=== PATIENT | male | born 1970 | race American Indian/Alaskan Native ===

== ENCOUNTER 2017-08-08 18:03 | Observation (INO) | payer SELFPAY ==
[2017-08-08 19:10] LABS: Basophils % (Auto) 0.4 % (0.0-1.8); Eosinophils # (Auto) 0.1 K/mm3 (0.0-0.4); Eosinophils % (Auto) 1.3 % (0.0-4.3); Hematocrit 45.2 % (35.5-45.6); Hemoglobin 15.1 gm/dl (11.8-15.2); Lymphocytes # (Auto) 3.4 K/mm3 (1.2-5.4); Lymphocytes % (Auto) 52.5 % (13.4-35.0); Mean Corpuscular HGB Conc 33 % (32-34); Mean Corpuscular Hemoglobin 31 pg (28-32); Mean Corpuscular Volume 93 fl (84-94); Monocytes # (Auto) 0.4 K/mm3 (0.0-0.8); Monocytes % (Auto) 6.9 % (0.0-7.3); Platelet Count 162 K/mm3 (140-440); Red Blood Count 4.85 M/mm3 (3.65-5.03); Red Cell Distribution Width 14.4 % (13.2-15.2)
[2017-08-08 19:17] LABS: INR 0.91 (0.87-1.13); Partial Thromboplastin Time 28.6 Sec. (24.2-36.6); Thrombin Time 15.4 Sec. (15.1-19.6)
[2017-08-08 19:33] LABS: BUN/Creatinine Ratio 14; Blood Urea Nitrogen 14 mg/dL (9-20); Calcium 9.4 mg/dL (8.4-10.2); Hemolysis Index 3
[2017-08-08] MEDS ORDERED: APRESOLINE IV ONE (20:32)
[2017-08-08] MEDS ORDERED: NACL 0.9% 500 ML 500 ML IV ONE (20:32)
--- NOTE | 2017-08-08 20:32 | Emergency Department Report ---
ED General Adult HPI - General Chief complaint: Dizziness Stated complaint: HEADACHE,DIZZINESS Time Seen by Provider: 08/08/17 20:05 Source: patient, RN notes reviewed Mode of arrival: Ambulatory Limitations: No Limitations - History of Present Illness Initial comments: This is a 47-year-old male who was previously unknown to this provider, he does not have a local primary care doctor. Thinks he has a past medical history of hypertension but has not been on medication for months. Patient presents to the ER with a complaint of dizziness. The dizziness has been present for a few days. He describes it as a sensation of unsteady gait. To me he denies headache, neck pain, chest pain, abdominal pain, shortness of breath. He denies blurry vision. He denies loss of visual acuity. His symptoms have been constant, they do not radiate anywhere, they're painless, they do not have exacerbating or relieving factors. The patient denies pulmonary embolus and DVT risk factors. The patient is actually adamant that he did not have chest pain or neck pain. He is also adamant that he did not have headache. -: Gradual Severity scale (0 -10): 0 Consistency: constant Improves with: none Worsens with: none Associated Symptoms: denies: confusion, chest pain, cough, diaphoresis, fever/ chills, loss of appetite, malaise, nausea/vomiting, rash, shortness of breath, syncope, weakness - Related Data Allergies Allergy/AdvReac Type Severity Reaction Status Date / Time No Known Allergies Allergy Verified 08/08/17 23:20 ED Review of Systems ROS: Stated complaint: HEADACHE,DIZZINESS Other details as noted in HPI ED Past Medical Hx - Past Medical History Previous Medical History?: Yes Hx Hypertension: Yes - Surgical History Past Surgical History?: No - Social History Smoking Status: Former Smoker Substance Use Type: Alcohol, Non Opiate Pain, Prescribed ED Physical Exam - General Limitations: No Limitations General appearance: alert, in no apparent distress - Head Head exam: Present: atraumatic, normocephalic - Eye Eye exam: Present: normal appearance, PERRL, EOMI, other (visual acuity intact to finger counting, color perception, reading at a close distance). Absent: nystagmus - ENT ENT exam: Present: normal exam, normal orophraynx, mucous membranes moist - Neck Neck exam: Present: normal inspection, full ROM. Absent: tenderness, meningismus - Respiratory Respiratory exam: Present: normal lung sounds bilaterally. Absent: respiratory distress - Cardiovascular Cardiovascular Exam: Present: regular rate, normal rhythm, normal heart sounds. Absent: systolic murmur, diastolic murmur, rubs, gallop - GI/Abdominal GI/Abdominal exam: Present: soft, normal bowel sounds. Absent: distended, tenderness, guarding, rebound, rigid, pulsatile mass - Rectal Rectal exam: Present: deferred - Extremities Exam Extremities exam: Present: normal inspection, full ROM, normal capillary refill. Absent: tenderness, pedal edema, joint swelling, calf tenderness - Back Exam Back exam: Present: normal inspection, full ROM. Absent: tenderness, CVA tenderness (R), paraspinal tenderness, vertebral tenderness - Neurological Exam Neurological exam: Present: alert, oriented X3, CN II-XII intact, normal gait, other (Extraocular movements intact. Tongue midline. No facial droop. Facial sensation intact to light touch in the V1, V2, V3 distribution bilaterally. 5 and 5 strength in 4 extremities.. Sensation is intact to light touch in 4 extremities.). Absent: motor sensory deficit - Psychiatric Psychiatric exam: Present: normal affect, normal mood - Skin Skin exam: Present: warm, dry, intact, normal color. Absent: rash ED Course Vital Signs 08/08/17 08/08/17 08/08/17 18:19 20:02 20:05 Temperature 98.2 F Pulse Rate 98 H 94 H Respiratory 20 16 18 Rate Blood Pressure 186/125 Blood Pressure [Left] O2 Sat by Pulse 99 99 Oximetry 08/08/17 08/08/17 08/08/17 20:15 20:18 20:30 Temperature Pulse Rate 87 Respiratory 18 Rate Blood Pressure 179/105 Blood Pressure 195/115 [Left] O2 Sat by Pulse 99 99 100 Oximetry 08/08/17 08/08/17 08/08/17 20:45 21:00 21:12 Temperature Pulse Rate 80 Respiratory Rate Blood Pressure 182/104 179/105 188/110 Blood Pressure [Left] O2 Sat by Pulse 99 98 Oximetry 08/08/17 08/08/17 08/08/17 21:15 21:30 21:45 Temperature Pulse Rate 77 92 H 87 Respiratory 14 19 16 Rate Blood Pressure 173/108 159/90 150/96 Blood Pressure [Left] O2 Sat by Pulse 99 100 99 Oximetry 08/08/17 08/08/17 08/08/17 22:00 22:15 22:30 Temperature Pulse Rate 78 77 85 Respiratory 12 15 14 Rate Blood Pressure 152/89 169/104 167/107 Blood Pressure [Left] O2 Sat by Pulse 97 98 Oximetry 08/08/17 08/08/17 08/08/17 22:45 23:00 23:15 Temperature Pulse Rate 77 77 87 Respiratory 14 15 17 Rate Blood Pressure 150/92 161/91 163/87 Blood Pressure [Left] O2 Sat by Pulse 97 96 99 Oximetry - Reevaluation(s) Reevaluation #1: 08/08/17 22:07 Differential diagnosis, including not limited to: Intracranial hemorrhage, posterior reversible encephalopathy syndrome, hypertensive emergency, nonspecific vestibulopathy Assessment and plan: 47-year-old male with very elevated blood pressure, was initially 206/126 when I am evaluating him with a complaint of dizziness and subjective unsteady gait. Objectively speaking has a GCS of 15, NIH score of 0 , walks with a steady gait, has no cerebellar signs or posterior circulation signs. Denies headache and neck pain, by history not consistent with subarachnoid hemorrhage, patient is quite sure that he did not have a headache. Check laboratory studies, noncontrast CT scan of the brain. Reassess. Reevaluation #2: 08/08/17 23:42 Case is presented to the Hospital physician, Dr. Chaidez, who accepted the patient to the medical service. ED Medical Decision Making - Lab Data Result diagrams: 08/08/17 18:52 08/08/17 18:52 Vital Signs 08/08/17 08/08/17 08/08/17 18:19 20:02 20:05 Temperature 98.2 F Pulse Rate 98 H 94 H Respiratory 20 16 18 Rate Blood Pressure 186/125 Blood Pressure [Left] O2 Sat by Pulse 99 99 Oximetry 08/08/17 08/08/17 08/08/17 20:15 20:18 20:30 Temperature Pulse Rate 87 Respiratory 18 Rate Blood Pressure 179/105 Blood Pressure 195/115 [Left] O2 Sat by Pulse 99 99 100 Oximetry 08/08/17 08/08/17 08/08/17 20:45 21:00 21:12 Temperature Pulse Rate 80 Respiratory Rate Blood Pressure 182/104 179/105 188/110 Blood Pressure [Left] O2 Sat by Pulse 99 98 Oximetry 08/08/17 08/08/17 21:15 21:30 Temperature Pulse Rate 77 92 H Respiratory 14 19 Rate Blood Pressure 173/108 159/90 Blood Pressure [Left] O2 Sat by Pulse 99 100 Oximetry Lab Results 08/08/17 08/08/17 08/08/17 Range/Units 18:52 18:52 18:52 WBC 6.5 (4.5-11.0) K/mm3 RBC 4.85 (3.65-5.03) M/mm3 Hgb 15.1 (11.8-15.2) gm/dl Hct 45.2 (35.5-45.6) % MCV 93 (84-94) fl MCH 31 (28-32) pg MCHC 33 (32-34) % RDW 14.4 (13.2-15.2) % Plt Count 162 (140-440) K/mm3 Lymph % (Auto) 52.5 H (13.4-35.0) % [place] % (Auto) 6.9 (0.0-7.3) % Eos % (Auto) 1.3 (0.0-4.3) % Baso % (Auto) 0.4 (0.0-1.8) % Lymph # 3.4 (1.2-5.4) K/mm3 [place] # 0.4 (0.0-0.8) K/mm3 Eos # 0.1 (0.0-0.4) K/mm3 Baso # 0.0 (0.0-0.1) K/mm3 Seg Neutrophils % 38.9 L (40.0-70.0) % Seg Neutrophils # 2.5 (1.8-7.7) K/mm3 PT 12.7 (12.2-14.9) Sec. INR 0.91 (0.87-1.13) APTT 28.6 (24.2-36.6) Sec. Thrombin Time 15.4 (15.1-19.6) Sec. Sodium 144 (137-145) mmol/L Potassium 3.9 (3.6-5.0) mmol/L Chloride 101.8 (98-107) mmol/L Carbon Dioxide 26 (22-30) mmol/L Anion Gap 20 mmol/L BUN 14 (9-20) mg/dL Creatinine 1.0 (0.8-1.5) mg/dL Estimated GFR > 60 ml/min BUN/Creatinine Ratio 14 % Glucose 99 (75-100) mg/dL Calcium 9.4 (8.4-10.2) mg/dL Troponin T < 0.010 (0.00-0.029) ng/mL - EKG Data -: EKG Interpreted by Me - EKG Data 08/08/17 22:10 Normal sinus, 93 bpm, normal axis, normal intervals, motion artifact, not morphologically consistent with ST elevation myocardial infarction. - Radiology Data Radiology results: report reviewed, image reviewed Noncontrast CT scan of the brain is negative for acute disease Critical care attestation.: If time is entered above; I have spent that time in minutes in the direct care of this critically ill patient, excluding procedure time. ED Disposition Clinical Impression: Hypertensive urgency Disposition: 09 OP ADMIT IP TO THIS HOSP Is pt being admited?: Yes Does the pt Need Aspirin: Yes Condition: Good
--- NOTE | 2017-08-08 21:08 | Cat Scan Report ---
FINAL REPORT EXAM: CT HEAD/BRAIN WO CON HISTORY: neuro deficits < 6hrs or sx present upon awakening COMPARISON: None available. TECHNIQUE: Axial images obtained skull base through vertex. FINDINGS: No acute intracranial hemorrhage, midline shift or pathologic extra axial fluid collection. Ventricles and cisterns are normal in size and configuration for the patient's age. Moore-white differentiation preserved. Calvarium grossly intact. Ocular globes are grossly unremarkable. Visualized para-nasal sinuses and mastoid air cells are clear. IMPRESSION: No grossly acute intracranial abnormality. If clinical concern for acute intracranial process remains, MRI would be suggested for further evaluation.
--- NOTE | 2017-08-08 22:55 | History and Physical Report ---
History of Present Illness Date of examination: 08/08/17 Chief complaint: Headache and dizziness History of present illness: This is a 47-year-old male who was previously unknown to this provider, he does not have a local primary care doctor. Thinks he has a past medical history of hypertension but has not been on medication for months. Patient presents to the ER with a complaint of dizziness. The dizziness has been present for a few days. He describes it as a sensation of unsteady gait. To me he denies headache, neck pain, chest pain, abdominal pain, shortness of breath. He denies blurry vision. He denies loss of visual acuity. His symptoms have been constant, they do not radiate anywhere, they're painless, they do not have exacerbating or relieving factors. The patient denies pulmonary embolus and DVT risk factors. The patient is actually adamant that he did not have chest pain or neck pain. He is also adamant that he did not have headache. - Past Medical History Previous Medical History?: Yes Hx Hypertension: Yes - Surgical History Past Surgical History?: No - Social History Smoking Status: Former Smoker Substance Use Type: Alcohol, Non Opiate Pain, Prescribed Medications and Allergies Allergies Allergy/AdvReac Type Severity Reaction Status Date / Time No Known Allergies Allergy Unverified 08/08/17 18:19 Review of Systems All systems: negative (all 14 systems reviewed and found to be negative except as mentioned in HPI) Exam - Physical Exam Narrative exam: Gen - patient is awake alert oriented to time place and person no evidence of acute distress HEENT - head is atraumatic normocephalic pupils equal round reactive to light, extraocular movements intact, oral mucosa moist oropharynx clear neck is supple no JVD no thyromegaly or lymphadenopathy no carotid bruits trachea is midline Heart - regular rate and rhythm no murmurs or gallops PMI nondisplaced Lungs - clear to auscultation bilaterally nonlabored breathing normal chest wall expansion no chest wall tenderness Abdomen - soft nondistended nontender normoactive bowel sounds no hepatosplenomegaly no abdominal masses or bruit appreciated Extremities - no cyanosis or edema. Neurological - grossly intact and nonfocal. Sensation is grossly intact. Cranial nerves II-12 grossly intact. No cerebellar signs. Skin - warm and dry no rashes or bruises Psychiatric - appropriate mood and affect Vascular system - no lymphadenopathy distal pulses 2+ bilaterally - Constitutional Vitals: Temp Pulse Resp BP Pulse Ox 98.2 F 92 H 19 159/90 100 08/08/17 18:19 08/08/17 21:30 08/08/17 21:30 08/08/17 21:30 08/08/17 21:30 Results - Labs CBC & Chem 7: 08/08/17 18:52 08/08/17 18:52 Labs: Laboratory Last Values WBC 6.5 K/mm3 (4.5-11.0) 08/08/17 18:52 RBC 4.85 M/mm3 (3.65-5.03) 08/08/17 18:52 Hgb 15.1 gm/dl (11.8-15.2) 08/08/17 18:52 Hct 45.2 % (35.5-45.6) 08/08/17 18:52 MCV 93 fl (84-94) 08/08/17 18:52 MCH 31 pg (28-32) 08/08/17 18:52 MCHC 33 % (32-34) 08/08/17 18:52 RDW 14.4 % (13.2-15.2) 08/08/17 18:52 Plt Count 162 K/mm3 (140-440) 08/08/17 18:52 Lymph % (Auto) 52.5 % (13.4-35.0) H 08/08/17 18:52 [place] % (Auto) 6.9 % (0.0-7.3) 08/08/17 18:52 Eos % (Auto) 1.3 % (0.0-4.3) 08/08/17 18:52 Baso % (Auto) 0.4 % (0.0-1.8) 08/08/17 18:52 Lymph # 3.4 K/mm3 (1.2-5.4) 08/08/17 18:52 [place] # 0.4 K/mm3 (0.0-0.8) 08/08/17 18:52 Eos # 0.1 K/mm3 (0.0-0.4) 08/08/17 18:52 Baso # 0.0 K/mm3 (0.0-0.1) 08/08/17 18:52 Seg Neutrophils % 38.9 % (40.0-70.0) L 08/08/17 18:52 Seg Neutrophils # 2.5 K/mm3 (1.8-7.7) 08/08/17 18:52 PT 12.7 Sec. (12.2-14.9) 08/08/17 18:52 INR 0.91 (0.87-1.13) 08/08/17 18:52 APTT 28.6 Sec. (24.2-36.6) 08/08/17 18:52 Thrombin Time 15.4 Sec. (15.1-19.6) 08/08/17 18:52 Sodium 144 mmol/L (137-145) 08/08/17 18:52 Potassium 3.9 mmol/L (3.6-5.0) 08/08/17 18:52 Chloride 101.8 mmol/L (98-107) 08/08/17 18:52 Carbon Dioxide 26 mmol/L (22-30) 08/08/17 18:52 Anion Gap 20 mmol/L 08/08/17 18:52 BUN 14 mg/dL (9-20) 08/08/17 18:52 Creatinine 1.0 mg/dL (0.8-1.5) 08/08/17 18:52 Estimated GFR > 60 ml/min 08/08/17 18:52 BUN/Creatinine Ratio 14 % 08/08/17 18:52 Glucose 99 mg/dL (75-100) 08/08/17 18:52 Calcium 9.4 mg/dL (8.4-10.2) 08/08/17 18:52 Troponin T < 0.010 ng/mL (0.00-0.029) 08/08/17 18:52 - Imaging and Cardiology Imaging and Cardiology: CT head without contrast showing no acute process Assessment and Plan Assessment and plan: Assessment and plan - Hypertensive urgency emergency Headache and dizziness likely secondary to hypertensive emergency- now resolved Plan - Admit to medical floor with telemetry for 24-hour observation Patient has been out of his medications for the past 8 months start him on hydralazine by mouth as he responded well to the IV hydralazine in the ER. We will also give him when necessary IV hydralazine Also start him on losartan and HCTZ 20 mg/25 mg daily Monitor vital signs and blood pressures closely titrate antihypertensive medications as needed for optimal blood pressure control Monitor CBC and electrolytes Replace electrolytes when necessary DVT GI prophylaxis as ordered Monitor and follow the patient closely VTE prophylaxis?: Chemical, Mechanical Plan of care discussed with patient/family: Yes
[2017-08-08] MEDS ORDERED: AMBIEN PO PRN (22:56)
[2017-08-08] MEDS ORDERED: DULCOLAX PR PRN (22:56)
[2017-08-08] MEDS ORDERED: MILK OF MAGNESIA PO PRN (22:56)
[2017-08-08] MEDS ORDERED: PERCOCET 5/325 PO PRN (22:56)
[2017-08-08] MEDS ORDERED: TYLENOL PO PRN (22:56)
[2017-08-08] MEDS ORDERED: ZOFRAN IV PRN (22:56)
[2017-08-08] MEDS ORDERED: APRESOLINE IV PRN (22:58)
[2017-08-08] MEDS ORDERED: ASPIRIN PO ONE (23:43)
[2017-08-09 05:41] LABS: Basophils % (Auto) 0.3 % (0.0-1.8); Eosinophils # (Auto) 0.1 K/mm3 (0.0-0.4); Eosinophils % (Auto) 1.1 % (0.0-4.3); Hematocrit 42.9 % (35.5-45.6); Hemoglobin 14.7 gm/dl (11.8-15.2); Lymphocytes # (Auto) 2.4 K/mm3 (1.2-5.4); Lymphocytes % (Auto) 40.6 % (13.4-35.0); Mean Corpuscular HGB Conc 34 % (32-34); Mean Corpuscular Hemoglobin 31 pg (28-32); Mean Corpuscular Volume 91 fl (84-94); Monocytes # (Auto) 0.4 K/mm3 (0.0-0.8); Platelet Count 149 K/mm3 (140-440); Red Blood Count 4.71 M/mm3 (3.65-5.03); Red Cell Distribution Width 14.8 % (13.2-15.2)
[2017-08-09 06:01] LABS: Chol/HDL Ratio 4.71 %
[2017-08-09 06:02] LABS: Alanine Aminotransferase 13 units/L (7-56); Albumin 4.1 g/dL (3.9-5); BUN/Creatinine Ratio 13; Blood Urea Nitrogen 12 mg/dL (9-20); Calcium 8.8 mg/dL (8.4-10.2); Hemolysis Index 5
--- NOTE | 2017-08-09 09:59 | Progress Note ---
Assessment and Plan Assessment and plan: 47-year-old male presented to the ER with a complaint of dizziness. The dizziness has been present for a few days. He describes it as a sensation of unsteady gait. To me he denies headache, neck pain, chest pain, abdominal pain , shortness of breath. He denies blurry vision. He denies loss of visual acuity. His symptoms have been constant, they do not radiate anywhere, they're painless, they do not have exacerbating or relieving factors. The patient is actually adamant that he did not have chest pain or neck pain. He is also adamant that he did not have headache. Hypertensive urgency emergency Continue Lisinopril, HCTZ, Hydralazine PRN Monitor vital signs and blood pressures closely titrate antihypertensive medications as needed for optimal blood pressure control Dizziness likely secondary to hypertensive emergency- now resolved Monitor CBC and electrolytes Replace electrolytes when necessary DVT prophylaxis [facility] Hospitalist Physical - Constitutional Vitals: Temp Pulse Resp BP Pulse Ox 98.4 F 75 18 167/94 97 08/09/17 07:43 08/09/17 07:43 08/09/17 07:43 08/09/17 09:25 08/09/17 07:43 General appearance: Present: no acute distress, well-nourished - EENT Eyes: Present: PERRL, EOM intact ENT: hearing intact, clear oral mucosa - Neck Neck: Present: supple, normal ROM - Respiratory Respiratory effort: normal Respiratory: bilateral: CTA - Extremities Extremities: no ischemia, No edema - Abdominal General gastrointestinal: soft, non-tender, non-distended - Integumentary Integumentary: Present: clear, warm, dry - Psychiatric Psychiatric: appropriate mood/affect, cooperative - Neurologic Neurologic: CNII-XII intact, moves all extremities - Allied Health Allied health notes reviewed: nursing Results - Labs CBC & Chem 7: 08/09/17 04:56 08/09/17 04:56 Labs: Laboratory Last Values WBC 6.0 K/mm3 (4.5-11.0) 08/09/17 04:56 RBC 4.71 M/mm3 (3.65-5.03) 08/09/17 04:56 Hgb 14.7 gm/dl (11.8-15.2) 08/09/17 04:56 Hct 42.9 % (35.5-45.6) 08/09/17 04:56 MCV 91 fl (84-94) 08/09/17 04:56 MCH 31 pg (28-32) 08/09/17 04:56 MCHC 34 % (32-34) 08/09/17 04:56 RDW 14.8 % (13.2-15.2) 08/09/17 04:56 Plt Count 149 K/mm3 (140-440) 08/09/17 04:56 Lymph % (Auto) 40.6 % (13.4-35.0) H 08/09/17 04:56 [place] % (Auto) 7.0 % (0.0-7.3) 08/09/17 04:56 Eos % (Auto) 1.1 % (0.0-4.3) 08/09/17 04:56 Baso % (Auto) 0.3 % (0.0-1.8) 08/09/17 04:56 Lymph # 2.4 K/mm3 (1.2-5.4) 08/09/17 04:56 [place] # 0.4 K/mm3 (0.0-0.8) 08/09/17 04:56 Eos # 0.1 K/mm3 (0.0-0.4) 08/09/17 04:56 Baso # 0.0 K/mm3 (0.0-0.1) 08/09/17 04:56 Seg Neutrophils % 51.0 % (40.0-70.0) 08/09/17 04:56 Seg Neutrophils # 3.1 K/mm3 (1.8-7.7) 08/09/17 04:56 PT 12.7 Sec. (12.2-14.9) 08/08/17 18:52 INR 0.91 (0.87-1.13) 08/08/17 18:52 APTT 28.6 Sec. (24.2-36.6) 08/08/17 18:52 Thrombin Time 15.4 Sec. (15.1-19.6) 08/08/17 18:52 Sodium 143 mmol/L (137-145) 08/09/17 04:56 Potassium 3.7 mmol/L (3.6-5.0) 08/09/17 04:56 Chloride 103.6 mmol/L (98-107) 08/09/17 04:56 Carbon Dioxide 28 mmol/L (22-30) 08/09/17 04:56 Anion Gap 15 mmol/L 08/09/17 04:56 BUN 12 mg/dL (9-20) 08/09/17 04:56 Creatinine 0.9 mg/dL (0.8-1.5) 08/09/17 04:56 Estimated GFR > 60 ml/min 08/09/17 04:56 BUN/Creatinine Ratio 13 % 08/09/17 04:56 Glucose 104 mg/dL (75-100) H 08/09/17 04:56 Hemoglobin A1c 5.7 % (4-6) 08/09/17 04:56 Calcium 8.8 mg/dL (8.4-10.2) 08/09/17 04:56 Phosphorus 2.60 mg/dL (2.5-4.5) 08/09/17 04:56 Magnesium 2.20 mg/dL (1.7-2.3) 08/09/17 04:56 Total Bilirubin 0.30 mg/dL (0.1-1.2) 08/09/17 04:56 AST 18 units/L (5-40) 08/09/17 04:56 ALT 13 units/L (7-56) 08/09/17 04:56 Alkaline Phosphatase 36 units/L (35-129) 08/09/17 04:56 Troponin T < 0.010 ng/mL (0.00-0.029) 08/08/17 18:52 Total Protein 7.1 g/dL (6.3-8.2) 08/09/17 04:56 Albumin 4.1 g/dL (3.9-5) 08/09/17 04:56 Albumin/Globulin Ratio 1.4 % 08/09/17 04:56 Triglycerides 121 mg/dL (2-149) 08/09/17 04:56 Cholesterol 184 mg/dL (50-199) 08/09/17 04:56 LDL Cholesterol Direct 121 mg/dL (50-130) 08/09/17 04:56 HDL Cholesterol 39 mg/dL (40-59) L 08/09/17 04:56 Cholesterol/HDL Ratio 4.71 % 08/09/17 04:56
[2017-08-09] MEDS ORDERED: LOVENOX SUB-Q SCH (10:00)
[2017-08-09] MEDS ORDERED: HCTZ PO SCH (10:00)
[2017-08-09] MEDS ORDERED: LOPRESSOR PO SCH (10:00)
[2017-08-09] MEDS ORDERED: ZESTRIL PO SCH (10:00)
--- NOTE | 2017-08-09 11:02 | Discharge Summary ---
<BERYL CORTÉS - Last Filed: 08/12/17 16:00> Providers - Providers Date of Admission: 08/08/17 22:56 Date of discharge: 08/09/17 Attending physician: KRUPA RAMÍREZ MD Primary care physician: [employer] [facility] [facility] Hospitalization Condition: Good Pertinent studies: Head CT showed No grossly acute intracranial abnormality. Hospital course: 47-year-old male presented to the ER with a complaint of dizziness. The dizziness has been present for a few days. He describes it as a sensation of unsteady gait. To me he denies headache, neck pain, chest pain, abdominal pain , shortness of breath. He denies blurry vision. He denies loss of visual acuity. His symptoms have been constant, they do not radiate anywhere, they're painless, they do not have exacerbating or relieving factors. The patient is actually adamant that he did not have chest pain or neck pain. He is also adamant that he did not have headache. -Patient was found to have hypertensive urgency and was treated with antihypertensives after which his symptoms improved. -Patient was clinically stable and was discharged home with prescriptions for antihypertensives and advised to follow up with PCP within 7 days. Discharge diagnoses Hypertensive urgency Dizziness likely secondary to hypertensive urgency DVT prophylaxis Disposition: DC-01 TO HOME OR SELFCARE Time spent for discharge: 32 minutes Core Measure Documentation - Palliative Care Palliative Care/ Comfort Measures: Not Applicable - Core Measures Any of the following diagnoses?: none Exam - Constitutional Vitals: Temp Pulse Resp BP Pulse Ox 98.4 F 75 18 167/94 97 08/09/17 07:43 08/09/17 07:43 08/09/17 07:43 08/09/17 09:25 08/09/17 07:43 General appearance: Present: no acute distress, well-nourished - EENT Eyes: Present: PERRL ENT: hearing intact, clear oral mucosa - Neck Neck: Present: supple, normal ROM - Respiratory Respiratory effort: normal Respiratory: bilateral: CTA - Cardiovascular Heart Sounds: Present: S1 & S2. Absent: rub, click - Extremities Extremities: pulses symmetrical, No edema Peripheral Pulses: within normal limits - Abdominal General gastrointestinal: Present: soft, non-tender, non-distended, normal bowel sounds - Integumentary Integumentary: Present: clear, warm, dry - Musculoskeletal Musculoskeletal: gait normal, strength equal bilaterally - Psychiatric Psychiatric: appropriate mood/affect, intact judgment & insight - Neurologic Neurologic: CNII-XII intact, moves all extremities - Allied Health Allied health notes reviewed: nursing Plan Activity: advance as tolerated, fall precautions Weight Bearing Status: Full Weight Bearing Diet: low salt Follow up with: PRIMARY CARE, [Primary Care Provider] - 3-5 Days Prescriptions: amLODIPine [Norvasc] 10 mg PO DAILY #30 tab Hydrochlorothiazide [HCTZ] 12.5 mg PO QDAY #30 capsule Lisinopril [Zestril TAB] 20 mg PO QDAY #30 tablet <KRUPA RAMÍREZ - Last Filed: 08/12/17 20:51> Providers - Providers Date of Admission: 08/08/17 22:56 Attending physician: KRUPA RAMÍREZ MD Primary care physician: [employer] [facility] Hospitalization Hospital course: Patient dizziness subsided and I have evaluated the patient, while he was walking and no symptoms. - Discharge Diagnoses (1) Dizziness, nonspecific Status: Acute (2) Hypertensive urgency Status: Acute Core Measure Documentation - Palliative Care Palliative Care/ Comfort Measures: Not Applicable - Core Measures Any of the following diagnoses?: none Exam - Constitutional Vitals: Temp Pulse Resp BP Pulse Ox 98.2 F 94 H 18 147/86 98 08/09/17 15:30 08/09/17 15:30 08/09/17 15:30 08/09/17 16:32 08/09/17 15:30
[2017-08-09] MEDS ORDERED: NORVASC PO ONE (16:00)
[2017-08-09 16:37] VITALS: BP 147/86
[2017-08-10] MEDS ORDERED: NORVASC PO ONE (14:30)
== END 2017-08-09 16:55 | disposition home or self-care (01) ==
LOC: ED 18:03 → 4A 22:56 → 3A 23:07
PROVIDERS: ADMIT Internal Medicine Geriatric Medicine; ATTEND Internal Medicine
DX: I16.1 Hypertensive emergency (principal); R51 Headache; R53.1 Weakness; Z87.891 Personal history of nicotine dependence
CPT/HCPCS: 36415; 70450; 80048; 80053; 80061; 82962; 83036; 83735; 84100; 84484; 85025; 85610; 85670; 85730; 93005; 93010; 96361; 96374; 96376; 99285; G0378; J0360; J7040; J1650